=== PATIENT | female | born 1980 | race American Indian/Alaskan Native ===

== ENCOUNTER 2021-04-02 12:31 | Emergency (ER) | payer SELFPAY ==
[2021-04-02 13:02] VITALS: BP 135/86
--- NOTE | 2021-04-02 13:49 | Emergency Department Report ---
ED General Adult HPI - General Chief complaint: Headache Stated complaint: FEVER PUI?: Yes Source: patient Mode of arrival: Ambulatory Limitations: No Limitations - History of Present Illness Initial comments: 40-year-old morbid obese -[place] female presents to the emergency room complaining of fever chills headache abdominal pain located in the suprapubic area, sore throat chest hurts body aches. Not Covid vaccination. No concern for Covid exposure. Has not tested for Covid and is asking if we test. She has been taking Tylenol and Excedrin. She is not vaccinated. She has a past medical history of asthma no known drug allergies. -: This morning Location: head, chest, abdomen Quality: aching Consistency: constant Improves with: none Worsens with: none Associated Symptoms: fever/chills, headaches, other (Urinary frequency). denies: cough, nausea/vomiting, shortness of breath Treatments Prior to Arrival: none - Related Data Allergies Allergy/AdvReac Type Severity Reaction Status Date / Time No Known Allergies Allergy Unverified 04/02/21 13:02 ED Review of Systems ROS: Stated complaint: FEVER Other details as noted in HPI Comment: All other systems reviewed and negative ED Past Medical Hx - Past Medical History Previous Medical History?: Yes Hx Asthma: Yes ED Physical Exam - General Limitations: No Limitations General appearance: alert, in no apparent distress, obese - Head Head exam: Present: atraumatic, normocephalic - Eye Eye exam: Present: normal appearance - ENT ENT exam: Present: normal orophraynx, mucous membranes moist - Neck Neck exam: Present: normal inspection, full ROM. Absent: lymphadenopathy - Respiratory Respiratory exam: Present: normal lung sounds bilaterally. Absent: chest wall tenderness - Cardiovascular Cardiovascular Exam: Present: regular rate, normal rhythm. Absent: systolic murmur, diastolic murmur, rubs, gallop - GI/Abdominal GI/Abdominal exam: Present: soft. Absent: distended, tenderness, guarding - Extremities Exam Extremities exam: Present: normal inspection, full ROM - Back Exam Back exam: Present: normal inspection - Neurological Exam Neurological exam: Present: alert, oriented X3, normal gait - Psychiatric Psychiatric exam: Present: normal affect, normal mood - Skin Skin exam: Present: warm, dry, intact, normal color. Absent: rash ED Course Vital Signs 04/02/21 13:01 Temperature 99.4 F Pulse Rate 83 Respiratory 18 Rate Blood Pressure 135/86 [Right] O2 Sat by Pulse 100 Oximetry ED Medical Decision Making - Medical Decision Making 40-year-old morbid obese -[place] female presents to the emergency room complaining of fever chills headache abdominal pain located in the suprapubic area, sore throat chest hurts body aches. Not Covid vaccination. No concern for Covid exposure. Has not tested for Covid and is asking if we test. She has been taking Tylenol and Excedrin. She is not vaccinated. She has a past medical history of asthma no known drug allergies. Urinalysis urine test has been sent by this provider. Urinalysis is negative urine test is negative. Encourage patient to go get Covid tested Tylenol ibuprofen as needed for body aches headaches chest wall pain. Critical care attestation.: If time is entered above; I have spent that time in minutes in the direct care of this critically ill patient, excluding procedure time. ED Disposition Clinical Impression: Suspected COVID-19 virus infection Disposition: HOME / SELF CARE / HOMELESS Is pt being admited?: No Does the pt Need Aspirin: No Condition: Stable Instructions: COVID-19: How to Protect Yourself and Others - CDC, Prevent the Spread of COVID-19 if You Are Sick - CDC Additional Instructions: Your symptoms appear most consistent with a nonspecific viral syndrome. However, given this current pandemic, COVID-19 is in the differential of possibilities. I do recommend outpatient Covid 19 testing. In the meantime, isolate/quarantine yourself and stay away from anyone who is elderly, immunocompromised or chronically ill. You can use ibuprofen every 6-8 hours and Tylenol every 4-8 hours, using the dosing on the back of the bottle, as needed for any fever or body aches. Return to the emergency department with any worsening of your symptoms, development of chest pain or shortness of breath, or with any acute distress. Urinalysis is negative for any infection test is negative. Forms: Work/School Release Form(ED) Time of Disposition: 15:08
[2021-04-02] MEDS ORDERED: IBUPROFEN 600 MG TAB PO ONE ×2 (14:21→14:29)
[2021-04-02 14:45] LABS: Bilirubin,Urine NEG (Negative); Blood,Urine NEG (Negative); Color,Urine Yellow (Yellow); Mucus,Urine 3+ /HPF
[2021-04-02 14:50] LABS: HCG Qualitative,Urine Negative (Negative)
== END 2021-04-02 15:26 | disposition home or self-care (01) ==
LOC: ED 12:31
DX: R50.9 Fever, unspecified (principal); R51.9 Headache, unspecified; R10.13 Epigastric pain; J45.909 Unspecified asthma, uncomplicated; Z20.822 Contact with and (suspected) exposure to COVID-19
CPT/HCPCS: 81001; 81025; 99283